=== PATIENT | male | born 1955 | race Asian ===

== ENCOUNTER 2017-10-11 10:59 | Emergency (ER) | payer OTHER ==
[~2017-10-11] VITALS: Ht 180.3 cm; Wt 63.5 kg
[2017-10-11 11:10] VITALS: Ht 180.3 cm; Wt 63.5 kg
[2017-10-11 12:21] LABS: PLATELET COUNT 208 x10^3mcL (130-400); RED CELL DISTRIBUTION WIDTH 13.6 % (11.5-14.5)
[2017-10-11 12:58] LABS: CALCIUM 9.3 mg/dL (8.5-10.1); CARBON DIOXIDE 23.3 mmol/L (21-32); CREATININE SERUM 2.6 mg/dL (0.7-1.3); POTASSIUM SERUM 3.6 mmol/L (3.5-5.1)
[2017-10-11 13:02] LABS: ALBUMIN 3.9 g/dL (3.4-5.0); BILIRUBIN TOTAL 0.6 mg/dL (0.20-1.00)
[2017-10-11 13:12] LABS: TOTAL PROTEIN, SERUM 9.2 g/dL (6.4-8.2)
[2017-10-11 14:15] LABS: ATYPICAL LYMPH 0 %; BAND NEUTROPHIL 5 % (0-10); MONOCYTE 0 % (0-7); SEGMENTED NEUTROPHILS 93 % (37-75)
[2017-10-11 14:16] LABS: BASOPHIL 0 % (0-2); PLATELET MORPHOLOGY PLATELETS DECREASED; rbc morphology (normal/abnorm) NORMAL (NORMAL)
[2017-10-11 14:43] VITALS: BP 167/89
== END 2017-10-11 14:43 | disposition home or self-care (01) ==
LOC: ED 10:59
PROVIDERS: Emergency Medicine
DX: K52.9 Noninfective gastroenteritis and colitis, unspecified (principal); I10 Essential (primary) hypertension
CPT/HCPCS: J2405; J7030

== ENCOUNTER 2019-10-14 18:17 | Emergency (ER) | payer OTHER ==
[~2019-10-14] VITALS: Ht 182.9 cm; Wt 58.5 kg
[2019-10-14 18:32] VITALS: Ht 182.9 cm; Wt 58.5 kg
[2019-10-14 19:22] LABS: BASOPHIL % 0.3 % (0-2); PLATELET COUNT 197 x10^3mcL (130-400); RED CELL DISTRIBUTION WIDTH 14.1 % (11.5-14.5)
[2019-10-14 19:27] LABS: ALBUMIN 3.6 g/dL (3.4-5.0); BILIRUBIN TOTAL 0.5 mg/dL (0.20-1.00); CALCIUM 8.2 mg/dL (8.5-10.1); CARBON DIOXIDE 30.8 mmol/L (21-32); MAGNESIUM 2.6 mg/dL (1.8-2.4); POTASSIUM SERUM 3.7 mmol/L (3.5-5.1)
[2019-10-14 19:29] LABS: TOTAL PROTEIN, SERUM 8.8 g/dL (6.4-8.2)
[2019-10-14 19:32] LABS: CREATININE SERUM 11.8 mg/dL (0.7-1.3)
[2019-10-14 19:55] LABS: PHOSPHOROUS 9.8 mg/dL (2.5-4.9)
[2019-10-14 21:14] VITALS: BP 137/69
== END 2019-10-14 21:14 | disposition home or self-care (01) ==
LOC: ED 18:17
PROVIDERS: Student in an Organized Health Care Education/Training Program
DX: R55 Syncope and collapse (principal); I12.0 Hypertensive chronic kidney disease with stage 5 chronic kidney disease or end stage renal disease; N18.6 End stage renal disease; Z99.2 Dependence on renal dialysis; Z86.73 Personal history of transient ischemic attack (TIA), and cerebral infarction without residual deficits
CPT/HCPCS: Q0092